=== PATIENT | female | born 1960 | race Two or more races ===

== ENCOUNTER → 2018-10-01 | Day surgery (SDC) | payer OTHER ==
[~2018-10-01] MED LIST: CHLORTHALIDONE25 MG PO; NORVASC10 MG PO; PERCOCET 5-3251 EACH PO; RECTICARE30 GM TOP
== END | disposition home or self-care (01) ==
LOC: ADM 09-24 12:30 → CIR.AMB 07:00
DX: D12.9 Benign neoplasm of anus and anal canal (principal)